=== PATIENT | female | born 1950 | race Caucasian/White ===

== ENCOUNTER 2018-01-03 13:38 | Day surgery (SDC) | payer OTHER, BC ==
--- NOTE | 2018-01-03 13:58 | PDHPUP ---
History & Physical Update H&P update statement: This history and physical update is based on an assessment of the patient which was completed after admission or registration (within 24 hours), but prior to the surgery/procedure. H&P update: H&P reviewed & patient examined, no change in patient's condition since H&P completed
[2018-01-03] MEDS ORDERED: BUPIVACAINE/EPI 0.5% 30 ML SDV ONE (15:31)
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
[2018-01-03] MEDS ORDERED: PROPOFOL 200 MG/20 ML VIAL ONE (15:55)
[2018-01-03] MEDS ORDERED: fentaNYL 100 MCG/2 ML INJ ONE ×2 (15:55→17:17)
[2018-01-03] MEDS ORDERED: MIDAZOLAM 2 MG/2 ML VIAL ONE (15:56)
[2018-01-03] MEDS ORDERED: ONDANSETRON 4 MG/2 ML VIAL ONE (16:16)
[2018-01-03] MEDS ORDERED: ROCURONIUM 50 MG/5 ML VIAL ONE (16:16)
[2018-01-03] MEDS ORDERED: DEXAMETHASONE 4 MG/ML VIAL ONE (16:16)
[2018-01-03] MEDS ORDERED: KETOROLAC 30 MG/1 ML SDV ONE (16:16)
[2018-01-03] MEDS ORDERED: SUGAMMADEX SODIUM 200 MG/2 ML VIAL IVP ONE ×2 (16:35)
--- NOTE | 2018-01-03 16:43 | POSTOPPROG ---
Post Op Note Date of Operation: 01/03/18 Surgeon: Trell Washington Web Designer Developer: Shireen Coyne PA-C Anesthesiologist: Marilee Scott Anesthesia: GET(General Endotracheal) Pre-op Diagnosis: Right femoral hernia Post-op Diagnosis: Same Procedure: Lap BIH Findings: fat containing right femoral hernia Inf/Abcess present in the surg proc area at time of surgery?: No EBL: Minimal Complications: no immediate Specimen(s): none
[2018-01-03] MEDS ORDERED: ENOXAPARIN 40 MG/0.4 ML SYR SC SCH (16:45)
[2018-01-03] MEDS ORDERED: PROMETHAZINE HCL 25 MG/ML INJ IVP PRN (16:55)
[2018-01-03] MEDS ORDERED: ONDANSETRON 4 MG/2 ML VIAL IVP PRN (16:55)
[2018-01-03] MEDS ORDERED: oxyCODONE IR 5 MG TAB PO PRN (16:55)
[2018-01-03] MEDS ORDERED: ACETAMINOPHEN 500 MG TAB PO PRN (16:55)
[2018-01-03] MEDS ORDERED: NALOXONE HCL 0.4 MG/ML INJ IVP PRN (16:55)
[2018-01-03] MEDS ORDERED: HYDROmorphONE/DILAUDID 2 MG/ML INJ IVP PRN (16:55)
--- NOTE | 2018-01-03 16:57 | POSTANESTH ---
Post Anesthetic Evaluation Respiratory Status: Normal, Stable Level of Consciousness/Mental Status: Can Participate in Eval Pain Control: Adequate, Prn Tx Ordered Nausea/Vomiting Control: Adequate, Prn Tx Ordered Complications Possibly Related to Anesthesia: None Noted
[2018-01-03] MEDS: fentaNYL 100 MCG/2 ML INJ IVP PRN ×3 (17:18→18:03)
[2018-01-03] MEDS ORDERED: ENOXAPARIN 30 MG/0.3 ML SYR SC SCH (18:00)
[2018-01-03] MEDS ORDERED: oxyCODONE IR 5 MG TAB ONE (18:27)
[2018-01-03] MEDS ORDERED: ACETAMINOPHEN 500 MG TAB ONE (18:28)
[2018-01-03 18:48] VITALS: BP 131/80
--- NOTE | 2018-01-04 09:31 | GOP ---
DATE OF OPERATION: 01/03/2018 SURGEON: Trell Washington MD SERGING MACHINE OPERATOR: Shireen Coyne PA-C. ANESTHESIA: General. ANESTHESIOLOGIST: Marilee Scott MD. PREOPERATIVE DIAGNOSIS: Symptomatic femoral hernia. POSTOPERATIVE DIAGNOSIS: Symptomatic femoral hernia. PROCEDURE PERFORMED: Laparoscopic right femoral herniorrhaphy with prophylactic left inguinal repair. FINDINGS: See below. INDICATIONS: 67-year-old female with a symptomatic right femoral hernia. She is undergoing surgical repair at this time. Risks and benefits were explained of bleeding, infection, open conversion, bladder injury as well as recurrence. All questions were answered. She desires to proceed. ortho assistant is standard and necessary and customary for the safe performance of this procedure. DESCRIPTION OF PROCEDURE: General anesthesia was induced. Marcaine with epinephrine was infiltrated. A curvilinear infraumbilical incision was created. The left anterior rectus sheath fascia was opened. The preperitoneal space was developed with a balloon dissecting trocar until bilateral pubic arches were identified. A structural balloon was inserted followed by two 5 mm lower midline ports. Bilateral round ligaments were circumferentially encompassed. There was no evidence of indirect sacs. There was a small incarcerated right femoral defect, inclusive of preperitoneal fat. The fat was excised out of the space and the defect covered with a large 3D patch securing it to Tomasz's ligament and allowed it to spring into place. The contralateral groin was dissected out. There was no evidence of direct or indirect defect. A large 3D patch was inserted and secured prophylactically in mirror-image fashion. Complete coverage of the the myopectineal surface was obtained. Satisfactory hemostasis was assured. Trocars were removed under direct visualization. The anterior rectus sheath fascia was closed with running Vicryl suture. The wounds were closed with Monocryl suture followed by Dermabond. The patient was taken to recovery uneventfully. Copy requested to: RENUKA HEIN /[id number]/MODL MTDD
== END 2018-01-03 19:15 | disposition home or self-care (01) ==
LOC: FSGY 13:38
PROVIDERS: ATTEND Surgery
PROC: 0YUE4JZ Supplement Bilateral Femoral Region with Synthetic Substitute, Percutaneous Endoscopic Approach (ICD-10-PCS; principal; 2018-01-03 15:30)
DX: K41.90 Unilateral femoral hernia, without obstruction or gangrene, not specified as recurrent (principal); Z87.891 Personal history of nicotine dependence; Z86.711 Personal history of pulmonary embolism
CPT/HCPCS: C1727; C1781; J1100; J1650; J1885; J2250; J2405; J2704; J3010